=== PATIENT | male | born 1955 | race Caucasian/White ===

== ENCOUNTER 2023-03-20 09:09 | Emergency (ER) | payer MEDICARE, OTHER, SELFPAY ==
[2023-03-20] VITALS (10 sets, daily range): BP systolic 176–214; BP diastolic 95–135; PULSE 89–106; RESP 16–24; TEMP 36.6; O2SAT 95–98; BMI 23.7
--- NOTE | 2023-03-20 09:21 | DI.RAD.S_ITS ---
PROCEDURE: XR CHEST 1V INDICATIONS: chest pain TECHNIQUE: One view of the chest was acquired. COMPARISON: None. FINDINGS: Surgical changes and devices: None. Lungs and pleura: Lungs are clear. No pleural effusions or pneumothorax. Mediastinum: Mediastinal contours appear normal. Heart size is normal. Bones and chest wall: No suspicious bony lesions. Overlying soft tissues appear unremarkable. IMPRESSION: No acute cardiopulmonary abnormality is seen. Dictated by: Joi Suarez M.D. on 03/20/2023 at 10:35 Approved by: Joi Suarez M.D. on 03/20/2023 at 10:35
[2023-03-20 09:34] LABS: Add Manual Diff / Slide Review NO; Basophils Absolute Auto 100 /uL (0-100); Basophils Percent Auto 0.7 % (0-2); Eosinophils Absolute Auto 0 /uL (0-450); Eosinophils Percent Auto 0.3 % (2-4); Hematocrit 45.6 % (41-53); Hemoglobin 15.6 g/dL (13.5-17.5); Lymphocytes Absolute Auto 2100 /uL (1100-4500); Lymphocytes Percent Auto 27.1 % (25-40); Mean Corpuscular HGB Conc 34.2 % (30-36); Mean Corpuscular Volume 93.6 fL (80-100); Monocytes Absolute Auto 900 /uL (0-900); Monocytes Percent Auto 11.4 % (3-14); Neutrophils Absolute Auto 4600 /uL (1500-7000); Neutrophils Percent Auto 60.5 % (50-75); Platelet Count 274 X10^3/uL (150-400); Red Blood Cell Count 4.88 X10^6/uL (4.5-5.9); Red Cell Distribution Width 13.6 % (11.6-14.8); White Blood Cell Count 7.6 X10^3/uL (4.5-11.0)
[2023-03-20 09:44] LABS: PTT Partial Thromboplastin Tim 29 SECONDS (25.1-36.5)
[2023-03-20 09:46] LABS: Alanine Aminotransferase 22 IU/L (<50); Albumin 4.5 g/dL (3.5-5.0); Albumin Globulin Ratio 1.3 (1.0-2.8); Alkaline Phosphatase 61 U/L (38-126); Aspartate Aminotransferase 37 IU/L (17-59); Bilirubin Total 0.8 mg/dL (0.2-1.3); Blood Urea Nitrogen 10 mg/dL (9-20); Calcium 9.7 mg/dL (8.4-10.2); Carbon Dioxide 28 mmol/L (22-32); Chloride 102 mmol/L (98-107); Creatine Kinase 97 U/L (55-170); Estimated Glomerular Filt Rate > 60 mL/min (>60); Globulin 3.6 g/dL (1.7-4.1); Glucose 112 mg/dL (80-110); HEMOLYSIS < 15 (0-50); Lipase 68 U/L (23-300); Magnesium 1.8 mg/dL (1.6-2.3); Potassium 4.1 mmol/L (3.4-5.1); Sodium 137 mmol/L (137-145); Total Protein 8.1 g/dL (6.3-8.2)
--- NOTE | 2023-03-20 09:49 | ED_ITS ---
HPI - General Adult General Chief complaint: Hypertension Stated complaint: sent by provider high BP Time Seen by Provider: 03/20/23 09:29 Source: patient Mode of arrival: Ambulatory Limitations: no limitations History of Present Illness HPI narrative: 67-year-old male with history of chronic alcohol use recently diagnosed with hypertensive changes in his eyes and early stage glaucoma. Patient states he was told to follow up with primary care because blood pressure was quite high. He went to see them today he was sent here for his hypertension. Patient states he was having vision changes he states it is better now that he is had glasses he states he is still not allowed to drive his evening. He denies any chest pain or pressure, he states he gets pains in his legs and arms intermittently gets swelling in his his arms and legs and neck but gets better at nighttime gets worse during the day. He denies headaches. Denies any numbness tingling or weakness. No nausea no vomiting, he states normal bowel movements no dysuria urgency or frequency or difficulty with urination. States no daily medications. Has not seen a physician in approximately 40 years. No daily surgeries. No known drug allergies. Does not use tobacco, drinks 4-5 alcoholic drinks daily, no recreational or illicit drugs. He is accompanied by his partner of 17 year. Patient states he finally began to seek medical care because he now qualifies for Medicare and has not sure since. He was sitting up and establishing with primary care today. He does live in [place]. He also plans to set up with a dentist later this month. Related Data Previous Rx's Medication Instructions Recorded lisinopril 20 mg tablet 20 mg PO DAILY #30 tabs 03/20/23 Allergies Allergy/AdvReac Type Severity Reaction Status Date / Time No Known Drug Allergies Allergy Verified 03/20/23 09:14 Review of Systems Review of Systems ROS Unobtainable: All systems reviewed & are unremarkable except as noted in HPI and below Patient History Social History Smoking Status: Former smoker Smoking Status: Former smoker alcohol intake frequency: 3 or more drinks per day Alcohol type: beer Substance Use Type: does not use Exam Narrative Exam Narrative: GENERAL: Alert and oriented x three, male in mild distress. Patient does have gela complexion. HEENT: Head normocephalic, atraumatic, EOMI, pupils reactive, face symmetric, moist mucous membranes NECK: Supple, full range of motion CARDIOVASCULAR: Regular rate and rhythm without murmurs, rubs or gallops. No JVD. No edema bilateral lower extremities. RESPIRATORY: Breath sounds equal bilaterally, no wheezes rales or rhonchi. ABDOMEN: Soft, nontender. Normoactive bowel sounds all 4 quadrants. No guarding or rebound, rigidity, no mass : No CVA tenderness EXTREMITIES: Normal range of motion, no clubbing or edema appreciated. Neurovascularly intact NEUROLOGICAL: Cranial nerves II through XII grossly intact. Moving all extremities SKIN: Warm, dry, no petechiae, no rashes or lesions. Initial Vital Signs Initial Vital Signs: Vital Signs Temperature 98 F 03/20/23 09:14 Pulse Rate 102 H 03/20/23 09:14 Respiratory Rate 16 03/20/23 09:14 Blood Pressure 206/109 H 03/20/23 09:14 Pulse Oximetry 98 03/20/23 09:14 Oxygen Delivery Method Room Air 03/20/23 09:14 Course Orders Ordered: ED Orders 03/20/23 09:21 XR chest 1V Stat EKG-12 Lead Stat 03/20/23 09:27 Complete Blood Count AUTO DIFF Stat Comprehensive Metabolic Panel Stat Lipase Stat Magnesium Stat PTT Partial Thromboplastin Bhupinder Stat Prothrombin Time INR Stat Troponin & CK Cardiac Panel Stat Discontinued Medications Lisinopril (Lisinopril 20 Mg Tablet) 20 mg PO NOW ONE Stop: 03/20/23 10:24 Last Admin: 03/20/23 10:31 Dose: 20 mg Documented By: KAT Vital Signs Vital signs: Vital Signs - 8 hr 03/20/23 09:14 03/20/23 09:26 03/20/23 09:27 Temperature 98 F Pulse Rate 102 H 106 H 102 H Respiratory Rate 16 24 22 Blood Pressure 206/109 H Pulse Oximetry 98 97 97 Oxygen Delivery Method Room Air 03/20/23 09:27 03/20/23 09:30 03/20/23 09:30 Temperature Pulse Rate 100 H Respiratory Rate 22 Blood Pressure 214/123 H 200/110 H Pulse Oximetry 97 Oxygen Delivery Method 03/20/23 09:45 03/20/23 09:45 03/20/23 10:00 Temperature Pulse Rate 96 H 93 H Respiratory Rate 24 22 Blood Pressure 177/95 H Pulse Oximetry 96 95 Oxygen Delivery Method 03/20/23 10:00 03/20/23 10:04 03/20/23 10:04 Temperature Pulse Rate 96 H Respiratory Rate 22 Blood Pressure 191/135 H 198/110 H Pulse Oximetry 96 Oxygen Delivery Method 03/20/23 10:15 03/20/23 10:15 03/20/23 10:30 Temperature Pulse Rate 93 H Respiratory Rate 22 Blood Pressure 204/117 H 176/102 H Pulse Oximetry 96 Oxygen Delivery Method 03/20/23 10:30 03/20/23 10:31 Temperature Pulse Rate 89 90 Respiratory Rate 24 Blood Pressure 176/102 H Pulse Oximetry 95 Oxygen Delivery Method Medical Decision Making Lab Data 03/20/23 09:27 03/20/23 09:27 Labs: Lab Results 03/20/23 Range/Units 09:27 WBC 7.6 (4.5-11.0) X10^3/uL RBC 4.88 (4.5-5.9) X10^6/uL Hgb 15.6 (13.5-17.5) g/dL Hct 45.6 (41-53) % MCV 93.6 (80-100) fL MCH 32.0 (26-34) PG MCHC 34.2 (30-36) % RDW 13.6 (11.6-14.8) % Plt Count 274 (150-400) X10^3/uL Neut % (Auto) 60.5 (50-75) % Lymph % (Auto) 27.1 (25-40) % [place] % (Auto) 11.4 (3-14) % Eos % (Auto) 0.3 L (2-4) % Baso % (Auto) 0.7 (0-2) % Neut # (Auto) 4600 (7834-7696) /uL Lymph # (Auto) 2100 (9648-4897) /uL [place] # (Auto) 900 (0-900) /uL Eos # (Auto) 0 (0-450) /uL Baso # (Auto) 100 (0-100) /uL PT 11.0 (9.4-12.5) SECONDS INR 1.0 (0.9-1.3) APTT 29 (25.1-36.5) SECONDS Sodium 137 (137-145) mmol/L Potassium 4.1 (3.4-5.1) mmol/L Chloride 102 (98-107) mmol/L Carbon Dioxide 28 (22-32) mmol/L BUN 10 (9-20) mg/dL Creatinine 0.77 (0.66-1.25) mg/dL Estimated GFR > 60 (>60) mL/min BUN/Creatinine Ratio 13.0 (6-22) Glucose 112 H (80-110) mg/dL Calcium 9.7 (8.4-10.2) mg/dL Magnesium 1.8 (1.6-2.3) mg/dL Total Bilirubin 0.8 (0.2-1.3) mg/dL AST 37 (17-59) IU/L ALT 22 (<50) IU/L Alkaline Phosphatase 61 (38-126) U/L Total Creatine Kinase 97 (55-170) U/L Troponin I 0.018 (0.01-0.034) ng/mL Total Protein 8.1 (6.3-8.2) g/dL Albumin 4.5 (3.5-5.0) g/dL Globulin 3.6 (1.7-4.1) g/dL Albumin/Globulin Ratio 1.3 (1.0-2.8) Lipase 68 (23-300) U/L Imaging Data Chest x-ray: Radiologist's Impression: [place] [address] XRay Report Signed Patient: Theron Larose MR#: [id number] : 1955 Acct:[id number] Age/Sex: 67 / M Date of Service: 03/20/23 Loc: ED Accession Number: [id number] Procedure: XR chest 1V Ordering Provider: Flor Smith D.O. PROCEDURE: XR CHEST 1V INDICATIONS: chest pain TECHNIQUE: One view of the chest was acquired. COMPARISON: None. FINDINGS: Surgical changes and devices: None. Lungs and pleura: Lungs are clear. No pleural effusions or pneumothorax. Mediastinum: Mediastinal contours appear normal. Heart size is normal. Bones and chest wall: No suspicious bony lesions. Overlying soft tissues appear unremarkable. IMPRESSION: No acute cardiopulmonary abnormality is seen. Dictated by: Joi Suarez M.D. on 03/20/2023 at 10:35 Approved by: Joi Suarez M.D. on 03/20/2023 at 10:35 ECG Data Attestation: I personally reviewed and interpreted this ECG as follows: Prior ECG tracings: not available for review Interpretation: Sinus rhythm occasional PVC rate of 99 [place] 194 QRS of 106 QTC see a 428. No priors for comparison. MDM Narrative Medical decision making narrative: 67-year-old male who has not been seeing a physician regularly for the past 40 years presents hypertensive, no acute changes. Patient notes some edema in his arms legs and face, he does not have any significant changes in his lower extremities does have already complexion and does drink regularly. He states it gets better when he goes to sleep and comes back during the daytime. Denies any other acute changes. He has been told he has any images to his eye from his hypertension which is why he was seeking care today primary care. He is no obvious end-organ damage with his CBC, coags, CMP LFTs or troponin. Has not had any chest pain or shortness of breath EKG shows LVH but no other acute change with no priors. Chest x-ray shows no acute change. Discussed with patient went to normalize his blood pressure slowly over time we will start him on lisinopril provide prescription have patient follow-up. He states he does have a way to check blood pressure onset [place]. Asked to follow up with primary care for recheck and adjustment of medication is needed. We did discuss he may need additional adjustments in the future. Discharge Plan Departure Patient Disposition: Home Clinical Impression: Hypertension Instructions: DI for High Blood Pressure Activity Restrictions/Additional Instructions: Follow-up with your primary care physician for blood pressure recheck and management of your medication as needed. Take blood pressure medication once daily. You will need to follow up with your physician to get a refill. Prescription sent to pharmacy in Sunday. Please return for new chest pain, shortness of breath, lightheadedness or passing out severe headaches, sudden vision changes, rapidly worsening or new swelling, persistent vomiting, black or bloody stools or other new or concerning changes. Prescriptions: New lisinopril 20 mg tablet 20 mg PO DAILY Qty: 30 0RF Referrals: Shara Hardy ARNP [[facility]] - Stand Alone Forms: Patient Portal/API
[2023-03-20 09:58] LABS: Troponin I 0.018 ng/mL (0.01-0.034)
--- NOTE | 2023-03-20 10:16 | PC.NURSE ---
Dr. marin at bedside
[2023-03-20] MEDS: lisinopriL 20 MG TABLET PO (10:31)
== END 2023-03-20 10:59 | disposition home or self-care (01) ==
PROVIDERS: Emergency Provider Emergency Medicine
DX: I10 Essential (primary) hypertension (principal); Z87.891 Personal history of nicotine dependence
CPT/HCPCS: 36415; 71045; 80053; 82550; 83690; 83735; 84484; 85025; 85610; 85730; 93005; 99284

== ENCOUNTER → 2023-06-27 07:54 | Outpatient (CLI) | payer MEDICARE, OTHER, SELFPAY ==
--- NOTE | 2023-06-27 | DI.US.S_ITS ---
PROCEDURE: US ABD AORTA ANEURYSM SCREEN INDICATIONS: NICOTINE DEPENDENCE TECHNIQUE: Real time scanning was performed of the aorta and iliac arteries, with image documentation. COMPARISON: None. FINDINGS: Aorta: Proximal aortic diameter measures 2.6 cm. Mid-aorta measures 2.2 cm. Distal aortic diameter is 1.6 cm. Iliac arteries: Right common iliac artery measures 1.2 cm. Left common iliac artery measures 1.4 cm. Miscellaneous: The liver measures 18 cm and is markedly echogenic. Prevoid bladder volume is 446 cc, postvoid volume is 164 cc. IMPRESSION: 1. Abdominal aortic ectasia. 5 year sonographic surveillance. 2. Increased hepatic echogenicity noted likely related to fatty infiltration of the liver but other sources of hepatocellular disease cannot be excluded. 3. Large post void residual. Dictated by: Joi Suarez M.D. on 06/27/2023 at 8:37 Approved by: Joi Suarez M.D. on 06/27/2023 at 8:42
== END ==
LOC: US 07:55
PROVIDERS: PCP Family Medicine; Referring Provider Family Medicine; Visit Provider Family Medicine
DX: I77.811 Abdominal aortic ectasia (principal); Z13.6 Encounter for screening for cardiovascular disorders; Z87.891 Personal history of nicotine dependence
CPT/HCPCS: 76706

== ENCOUNTER 2023-12-10 07:03 | Day surgery (SDC) | payer MEDICARE, OTHER, SELFPAY ==
--- NOTE | 2023-12-10 | PATH_ITS ---
[facility] Accession Number: [id number] No. of containers..02 Tissue . 01 Material submitted: . PART A: colon - DESCENDING COLON POLYP PART B: colon - COLON, POLYP AT 17 CM . 01 Diagnosis: Part A: DESCENDING COLON POLYP: Tubular adenoma. . Part B: COLON, POLYP AT 17 CM: Tubulovillous adenoma. No high-grade dysplasia or malignancy identified. Polyp appears to be completely excised. See comment. . Specimen Comments: At the base of the polyp stalk, there is a rim of nonadenomatous colonic mucosa, suggesting that the polyp is completely excised. Correlation with the clinical endoscopic appearance before and after polypectomy is recommended for further evaluation. [facility] 12/12/20231807 Local . 01 Electronically signed: . Wagner Jones MD, Pathologist NPI- [id number] . 01 Gross description: . A. Received in formalin with two patient identifiers and descending colon polyp, is a single yanes soft tissue fragment, 0.5 cm in greatest dimension. Submitted in A1. . B. Received in formalin with two patient identifiers and polyp at 17 cm, is a single brown soft tissue fragment, 1.8 x 1.6 x 1.8 cm. Inked blue, serially sectioned, and submitted entirely in B1-B3. ([id number]) /MRV 12/12/20231807 Local . 01 Pathologist provided ICD-10: D12.4, D12.6 . 01 CPT . 627068, 337519 Specimen Comment: A courtesy copy of this report has been sent to [phone] Performed at: [address] [facility] [address], [place], [place] [id number] MD Wagner Jones MD Phone: [phone]
[2023-12-10 07:21] VITALS: BP 157/92; PULSE 73; RESP 16; TEMP 36.8; O2SAT 98
[2023-12-10] MEDS: LACTATED RINGERS 1,000 ML 42 ML IV (07:30)
--- NOTE | 2023-12-10 09:00 | PM.HP.1 ---
History of Present Illness History of Present Illness Date Patient Seen: 12/10/23 Time Patient Seen: 09:00 Chief complaint: Colonoscopy Narrative: Here for colonoscopy. Positive Cologuard I reviewed my office note. No changes. PFSH Social History Smoking Status: Former smoker alcohol intake: never Meds Home Medications and Allergies Home Medications Medication Instructions Recorded Confirmed Type lisinopril 20 mg tablet 20 mg PO DAILY #30 tabs 03/20/23 12/10/23 Rx Allergies Allergy/AdvReac Type Severity Reaction Status Date / Time No Known Drug Allergies Allergy Verified 12/10/23 07:17 Review of Systems Review of Systems ROS: Yes All systems reviewed with the patient and are negative except as otherwise documented Exam Vital Signs (past 8 hours): - 12/10/23 07:21 Temperature 98.3 F Pulse Rate 73 Respiratory Rate 16 Blood Pressure 157/92 H Pulse Oximetry 98 Oxygen Delivery Method Room Air Oxygen Flow Rate 0 Oxygen Delivery Method Room Air Oxygen Flow Rate 0 Const General: cooperative HENMT Head: normal to inspection Eyes General: appearance normal, both eyes and all related structures Neck Neck: normal visual inspection Chest Chest: normal inspection of the chest Resp Effort & Inspection: normal respiratory effort Cardio Rate: regular rate GI Inspection: normal to inspection Skin General: no rashes or lesions noted Neuro General: patient alert and patient awake Extrem General: normal to inspection and no pedal edema Psych Appearance: grossly normal Assessment & Plan Assessment & Plan narrative: 68-year-old with a positive Cologuard. Colonoscopy is pursued Time-Based Coding :: [TOTAL MINUTES] spent with patient and on the chart (including review of chart, obtaining history, exam, reviewing outside data, placing orders, documenting exam and treatment plan, and counseling patient) on [DATE].
--- NOTE | 2023-12-10 09:01 | PM.PREOP ---
Pre-operative Note Interval Note History & Physical reviewed/Exam performed by Physician: Yes Changes to H&P: No ASA Class (for procedural sedation): II
[2023-12-10 09:02] VITALS: BP 127/66; PULSE 74; RESP 16; TEMP 36.2; O2SAT 99
--- NOTE | 2023-12-10 09:03 | P.OP.COLON_ITS ---
Operative Date/Time/Diagnoses Date of procedure: 12/10/23 Time of procedure: 09:03 Pre-op diagnosis: Positive Cologuard Post-op diagnosis: same Procedure & Clinicians Study performed: Colonoscopy with hot snare polypectomy, Endoclip deployment, and submucosal tattoo injection Same procedure as scheduled: Yes Indications: Positive Cologuard Surgeon: Juan Jauregui Procedure Notes SCOAP/Timeout: Done Procedure in detail: After the risks and benefits were explained, written and verbal informed consent was obtained. The patient was brought into the procedure room and placed into the left lateral decubitus position. Please see anesthesia note for sedation details. Digital rectal examination was accomplished. The scope was introduced into the patient and advanced under direct visualization to the cecum as identi fied by the appendiceal orifice and ileocecal valve. The scope was slowly withdrawn to carefully examine the mucosa for any defects or lesions. Comprehensive imaging was accomplished throughout the rectum including the dentate line. The colon was decompressed, the scope was then removed from the patient who tolerated the procedure well. Procedure time was prolonged secondary to the challenging location of polypectomy and clip deployment. Twenty-two modifier is requested. Bowel prep adequate Pediatric colonoscope Scope withdrawal time: 44 minutes Sedation minutes: 49 Complications: none Impression: Patient had mild internal hemorrhoids. Grade 1. Diverticulosis was noted in the sigmoid. There was a large pedunculated polyp in the sigmoid colon at about 17 cm from the anal verge. This was removed with hot snare polypectomy. Maximum size of the polyp was thought to be approximately 20 mm. The stalk was broad. There was no immediate post polypectomy hemorrhage but a couple of Endoclips were deployed with difficulty in this location to reduce the chances of post polypectomy bleeding. The patient's motility and the angle of the polypectomy site made this location extremely challenging to maintain appropriate location with the scope for deployment of the clips. A small 0.5 cc Suzan ink tattoo was placed approximately a cm to a cm and a half distal to the polypectomy site. In the descending colon there was a sessile 6-7 mm polyp removed with hot snare. No additional pathology was appreciated throughout. Endoscopic diagnosis 1. Sigmoid colon polyp 2. Descending colon polyp 3. Diverticulosis 4. Mild internal hemorrhoids grade 1 Post-procedure Plan for aftercare: 1. Await histology. 2. Surveillance colonoscopy is likely to be suggested for 3 years. Disposition: PACU
[2023-12-10 09:05] VITALS: BP 126/84; PULSE 69; RESP 16; TEMP 36.8; O2SAT 98
[2023-12-10 09:11] VITALS: BP 122/74; PULSE 78; RESP 16; O2SAT 98
[2023-12-10 09:15] VITALS: BP 138/71; PULSE 65; RESP 14; O2SAT 98
== END 2023-12-10 09:25 | disposition home or self-care (01) ==
PROVIDERS: PCP Family Medicine; Referring Provider Internal Medicine Gastroenterology; Visit Provider Internal Medicine Gastroenterology
PROC: 0DJD8ZZ Inspection of Lower Intestinal Tract, Via Natural or Artificial Opening Endoscopic (ICD-10-PCS; CPT 45378; principal; 2023-12-10 08:00)
DX: Z12.11 Encounter for screening for malignant neoplasm of colon (principal); R19.5 Other fecal abnormalities; K64.0 First degree hemorrhoids; K57.30 Diverticulosis of large intestine without perforation or abscess without bleeding; D12.4 Benign neoplasm of descending colon; D12.6 Benign neoplasm of colon, unspecified
CPT/HCPCS: 45381; 45385; J2704

== ENCOUNTER → 2024-07-23 11:01 | Outpatient (CLI) | payer MEDICARE, OTHER, SELFPAY ==
--- NOTE | 2024-07-23 11:06 | DI.RAD.S_ITS ---
PROCEDURE: XR HIP W PEL IF DONE LT 2V INDICATIONS: LT HIP PAIN TECHNIQUE: Two views of the hip were acquired. COMPARISON: None. FINDINGS: Bones: There are no osseous abnormalities. SI and hip joints: Normal in width and alignment without arthritic change. Severe L3-4 L4-5 L5-S1 degenerative disc and facet disease Soft tissues: No soft tissue swelling, calcification or mass. IMPRESSION: Severe L3-4 through L5-S1 degenerative disc and facet disease. Pelvis proper is unremarkable Dictated by: Misha Domínguez M.D. on 07/24/2024 at 12:21 Approved by: Misha Domínguez M.D. on 07/24/2024 at 12:21
--- NOTE | 2024-07-23 11:07 | DI.RAD.S_ITS ---
PROCEDURE: XR LUMBAR SPINE 6V W BENDING INDICATIONS: LT HIP PAIN TECHNIQUE: 5 views of the lumbar spine acquired, including flexion and extension views. COMPARISON: None. FINDINGS: Lumbar spine curvature and alignment: Mild dextroscoliosis appreciated. Grade 1 L4-5 spondylolisthesis due to degenerate facet disease noted. No evidence of instability on flexion extension Bones: Mild chronic wedging of the visualized lower thoracic vertebral bodies-T9 through T12 appreciated. Disc spaces: Severe L2-3 L3-4, moderate L4-5 mild L5-S1 degenerative disc disease noted. Severe L4-5 and L5-S1 degenerative facet disease also seen. Soft tissues: No soft tissue swelling, calcification or mass. IMPRESSION: Degeneration Dictated by: Misha Domínguez M.D. on 07/24/2024 at 12:22 Approved by: Misha Domínguez M.D. on 07/24/2024 at 12:23
== END ==
PROVIDERS: PCP Family Medicine; Referring Provider Family Medicine; Visit Provider Family Medicine
DX: M25.552 Pain in left hip (principal); M47.816 Spondylosis without myelopathy or radiculopathy, lumbar region; M47.817 Spondylosis without myelopathy or radiculopathy, lumbosacral region; M51.360 Other intervertebral disc degeneration, lumbar region with discogenic back pain only; M51.370 Other intervertebral disc degeneration, lumbosacral region with discogenic back pain only
CPT/HCPCS: 72114; 73502

== ENCOUNTER → 2024-09-05 12:09 | Outpatient (CLI) | payer MEDICARE, OTHER, SELFPAY ==
--- NOTE | 2024-09-05 12:11 | DI.ECHO.S_ITS ---
[facility]---------+ [facility] : : [address] : [address] : : [id number] : : Phone: [phone] Echocardiogram Report + + :Name: RASHIDA HIGGINS Study Date: 09/05/2024 Height: 69 in : :[facility] ReadingLocation: Weight: 150 lb : : Gender: Male BSA: 1.8 m2 : :: 1955 Age: 69 yrs BP: 172/97 mmHg: :Reason For Study: NEAR SYNCOPE : :Ordering Physician: CHANA, : :CONNOR Justice Performed By: Joseph Barnes : :Referring: CONNOR ZAYAS : + + Interpretation Summary The left ventricle is mildly dilated. The ejection fraction is estimated to be 65-70%. Diastolic function could not be accurately assessed due to contradictory data. The left atrium is severely dilated. The right ventricle is normal in size and function. There is moderate mitral valve prolapse. There is mild to moderate mitral regurgitation. There is mild aortic regurgitation. Pulmonary artery pressures cannot be estimated because of the lack of a measurable TR jet velocity. The ascending aorta is mildly enlarged. Procedure: A two-dimensional transthoracic echocardiogram with color flow and Doppler was performed. The study quality was technically good. There is no prior echocardiogram noted for this patient. The patient was in normal sinus rhythm during the exam. Left Ventricle: There is normal left ventricular wall thickness. The left ventricle is mildly dilated. Proximal septal thickening is noted. There is no ventricular septal defect visualized. The ejection fraction is estimated to be 65-70%. Diastolic function could not be accurately assessed due to contradictory data. Right Ventricle: The right ventricle is normal in size and function. Atria: The left atrium is severely dilated. Right atrial size is normal. There is no Doppler evidence for an interatrial shunt. Mitral Valve: There is moderate mitral valve prolapse. The mitral regurgitant jet is eccentrically directed. There is mild to moderate mitral regurgitation. Aortic Valve: The aortic valve is trileaflet. The aortic valve opens well. The aortic valve is mildly calcified. There is no aortic valve stenosis. There is mild aortic regurgitation. Tricuspid Valve: The tricuspid valve leaflets are thin and pliable. There is trace tricuspid regurgitation. Pulmonary artery pressures cannot be estimated because of the lack of a measurable TR jet velocity. Pulmonic Valve: The pulmonic valve is not well seen, but is grossly normal. There is no pulmonic valvular regurgitation. Great Vessels: The aortic root is mildly dilated. The ascending aorta is mildly enlarged. The pulmonary artery is normal size. The inferior vena cava was not visualized. Pericardium/ Pleura There is no pericardial effusion. There is no pleural effusion. MMode/2D Measurements & Calculations LVIDd: 6.2 cm LVOT diam: 2.1 cm LVIDs: 3.1 cm Ao root diam: 4.1 cm FS: 49.2 % asc Aorta Diam: 3.7 cm EPSS: 0.52 cm IVSd: 0.95 cm LVPWd: 1.0 cm LV velazquez. diameter/BSA (cm/m^2): 3.4 LV sys. diameter/BSA (cm/m^2): 1.7 LA A2 area: 28.7 cm2 RA long axis: 4.8 cm LA A4 area: 26.8 cm2 RA area: 12.9 cm2 LA length (vol): 6.1 cm RA vol: 29.9 ml LA vol: 107.9 ml RA : 16.3 ml/m2 LA vol index: 59.0 ml/m2 RVD1 (basal): 3.9 cm RVD2 (mid): 3.5 cm TAPSE: 2.9 cm Doppler Measurements & Calculations Ao V2 max: 168.1 cm/sec LVOT Max Jesus: 133.0 cm/sec Ao V2 mean: 127.7 cm/sec LV V1 max P.1 mmHg Ao max P.3 mmHg LV V1 VTI: 18.7 cm Ao mean P.0 mmHg JEEVAN(I,D): 2.9 cm2 Ao V2 VTI: 23.3 cm JEEVAN(V,D): 2.9 cm2 sev ratio: 0.80 JEEVAN indexed to BSA (cm^2/m^2): 1.6 AI P1/2t: 464.7 msec AI dec slope: 283.3 cm/sec2 MV E max jesus: 68.9 cm/sec TR max jesus: 253.3 cm/sec MV A max jesus: 110.8 cm/sec TR max P.7 mmHg MV E/A: 0.62 PA V2 max: 101.7 cm/sec Med Peak E' Jesus: 3.7 cm/sec PA V2 mean: 69.3 cm/sec E/E' med: 18.8 PA mean P.1 mmHg Lat Peak E' Jesus: 8.4 cm/sec PA pr(Accel): 34.5 mmHg E/E' lat: 8.2 E/e' average: 13.5 MV dec time: 0.27 sec SV(LVOT): 67.4 ml Reading Physician:03:52 PM
== END ==
PROVIDERS: PCP Family Medicine; Referring Provider Family Medicine; Visit Provider Family Medicine
DX: I08.0 Rheumatic disorders of both mitral and aortic valves (principal); I77.89 Other specified disorders of arteries and arterioles; I77.810 Thoracic aortic ectasia; R55 Syncope and collapse
CPT/HCPCS: 93306

== ENCOUNTER → 2024-10-01 07:58 | Outpatient (CLI) | payer MEDICARE, OTHER, SELFPAY ==
--- NOTE | 2024-10-01 08:00 | DI.NM.S_ITS ---
PROCEDURE: NM EXERCISE TREADMILL NON NUC COMPARISON: None. INDICATIONS: NEAR SYNCOPE FINDINGS: the patient exercised for 22 seconds and stopped the study due to hip and back pain. Only 72% of maximum predicted heart rate reached. JASSI +83%. No angina and no ST changes during the study. IMPRESSION: Abnormal treadmill ECG only stress test as patient could only exercise for 22 seconds due to hip/back pain and only 72% of maximum predicted heart rate could be reached. Dictated by: Kathleen Tarango MD on 10/01/2024 at 15:48 Approved by: Kathleen Tarango MD on 10/01/2024 at 15:50
== END ==
PROVIDERS: PCP Family Medicine; Referring Provider Family Medicine; Visit Provider Family Medicine
DX: R55 Syncope and collapse (principal); R94.39 Abnormal result of other cardiovascular function study
CPT/HCPCS: 93017